=== PATIENT | female | born 1970 | race Caucasian/White ===

== ENCOUNTER 2020-07-08 07:53 | Emergency (ER) | payer OTHER ==
[~2020-07-08] VITALS: Ht 167.6 cm; Wt 84.4 kg
[2020-07-08 08:12] LABS: URINE BLOOD 3+ (Negative); URINE CLARITY CLEAR; URINE COLOR YELLOW; URINE GLUCOSE-RANDOM NEGATIVE (Negative); URINE KETONES TRACE (Negative); URINE LEUKOCYTES-REFLEX TRACE (Negative); URINE NITRITE-REFLEX NEGATIVE (Negative); URINE PROTEIN 1+ (Negative); URINE SPECIFIC GRAVITY >= 1.030 (1.005-1.030); URINE UROBILINOGEN 0.2 E.U./dl (0.2-1.0)
[2020-07-08] MEDS ORDERED: LEVO-T25 MCG PO (08:12)
[2020-07-08 08:26] LABS: ICTOTEST (BILI CONFIRMATORY) Negative (Negative); URINE BILIRUBIN 1+ (Negative)
[2020-07-08 08:30] LABS: ABSOLUTE BASOPHILS 0.1 thou/uL (0.0-0.2); ABSOLUTE EOSINOPHILS 0.2 thou/uL (0.0-0.7); ABSOLUTE LYMPHOCYTES 1.4 thou/uL (0.8-5.3); ABSOLUTE MONOCYTES 0.4 thou/uL (0.0-1.2); ABSOLUTE NEUTROPHILS 7.2 thou/uL (1.6-8.1); BASOPHILS 0.7 %; HEMATOCRIT 40.5 % (37.0-47.0); HEMOGLOBIN 13.8 gm/dL (12.0-15.0); MCH 29.1 pg (26.0-34.0); MCV 85.7 fL (80.0-100.0); MONOCYTES 4.5 %; MPV 7.9 fl. (7.2-11.1); NUCLEATED RBCS 0 /100WBC; PLATELET COUNT* 275 thou/uL (150-400); POLYS 77.8 %; RBC 4.73 mil/uL (4.20-5.00); RDW-CV 12.9 % (10.5-14.5); WBC 9.3 thou/uL (4.0-11.0)
[2020-07-08 08:32] LABS: BACTERIA-REFLEX 1-9 Few /HPF (None Seen); CASTS None Seen /LPF (None Seen); CRYSTALS None Seen /LPF (None Seen); MUCUS 4-6 Moderate strn/LPF (None Seen); SQUAMOUS 0-3 Few /LPF (0-3); URINE RBC >20 Many /HPF (0-2); URINE WBC-REFLEX 0-5 Rare /HPF (0-5)
[2020-07-08 08:36] LABS: CALCIUM 10.1 mg/dL (8.5-10.1); CREATININE 0.9 mg/dL (0.6-1.3); POTASSIUM 3.5 mmol/L (3.5-5.1)
[2020-07-08 08:40] LABS: ALBUMIN 3.5 g/dL (3.4-5.0); TOTAL BILIRUBIN 0.4 mg/dL (<0.1-1.0); TOTAL PROTEIN 6.4 g/dL (6.4-8.2)
[2020-07-08] MEDS ORDERED: ZOFRAN ODT4 MG SUBLING (10:51)
[2020-07-08] MEDS ORDERED: CIPROFLOXACIN500 M1 PO (10:51)
[2020-07-08] MEDS ORDERED: FLOMAX0.4 MG PO (10:51)
[2020-07-08] MEDS ORDERED: PERCOCET 5-3251 EACH PO (10:51)
[2020-07-08 11:15] VITALS: BP 122/77
[2020-07-08] MEDS ORDERED: AUGMENTIN 875-1 EACH PO (14:53)
--- NOTE | 2020-07-08 17:28 | EKG ---
[place] [address] ELECTROCARDIOGRAM REPORT Name: GENE ELIZABETH Room: [facility]#: [id number] Admission: 07/08/20 Attend Phys: Discharge: 07/08/20 Date of : 70 Date of Service: 07/08/2011 Report #: [id number] THIS REPORT FOR: //name// [facility] ED Test Date: 2020-07-08 Test Time: 08:11:51 Pat Name: GENE ELIZABETH Department: Room: Gender: F [employer] Rolling Machine Operator: IFEMOA : 1970 Requested By: Shon Wilkerson Order Number: [id number] MD: eLroy Garcia Measurements Intervals [place] Rate: 80 P: -3 WA: 199 QRS: -2 QRSD: 85 T: 31 QT: 369 QTc: 426 Interpretive Statements Sinus rhythm Borderline T abnormalities, anterior leads Compared to ECG 04/21/2011 08:09:50 T-wave abnormality now present Electronically Signed On 07-08-2020 17:28:07 EXPLOSIVES HANDLER by Leroy Garcia [email or web address] <ELECTRONICALLY SIGNED> By: Leroy Garcia MD, [facility] 07/08/20 1728 0 0 Leroy Garcai MD, [facility] /EPI
== END 2020-07-08 11:15 | disposition home or self-care (01) ==
LOC: M.ERS 07:53
PROVIDERS: Family Medicine
DX: N20.1 Calculus of ureter (principal); R11.10 Vomiting, unspecified; E03.9 Hypothyroidism, unspecified; Z90.711 Acquired absence of uterus with remaining cervical stump; Z79.899 Other long term (current) drug therapy; Z88.1 Allergy status to other antibiotic agents; Z91.040 Latex allergy status; Z88.5 Allergy status to narcotic agent; Z88.0 Allergy status to penicillin; Z88.2 Allergy status to sulfonamides